=== PATIENT | female | born 1980 | race Caucasian/White ===

== ENCOUNTER 2016-11-14 19:33 | Emergency (ER) | payer MEDICAID, OTHER ==
[2016-11-15] MEDS ORDERED: Morphine INJ* 4 MG/ML 1 ML CARPUJECT IV ONE (00:25)
[2016-11-15] MEDS ORDERED: Ondansetron INJ* 2 MG/ML VIAL IV ONE (00:25)
[2016-11-15] MEDS ORDERED: NS 0.9% 1000 ML* 1,000 ML IV ONE (00:25)
[2016-11-15 00:31] LABS: Hematocrit 46 % (35-47); Hemoglobin 15.2 g/dl (12.0-16.0); Mean Corpuscular HGB Conc 33 g/dl (31-36); Mean Corpuscular Hemoglobin 30 pg (27-31); Mean Corpuscular Volume 91 fL (80-97); Mean Platelet Volume 8 um3 (7.4-10.4); Red Blood Count 5.01 10^6/ul (4.0-5.4); Red Cell Distribution Width 13 % (10.5-15); White Blood Count 7.5 10^3/ul (3.5-10.8)
[2016-11-15 00:42] LABS: ALT 13 U/L (7-52); AST 14 U/L (13-39); Albumin 4.5 g/dL (3.2-5.2); Alkaline Phosphatase 51 U/L (34-104); Anion Gap 4 mmol/L (2-11); BUN/Creatinine Ratio 16.7 (8-20); Blood Urea Nitrogen 13 mg/dL (6-24); C Reactive Protein < 1.00 mg/L (< 5.00); CO2 Carbon Dioxide 26 mmol/L (22-32); Calcium 9.6 mg/dL (8.6-10.3); Chloride 105 mmol/L (101-111); EGFR African American 109.4 (>60); EGFR Non-African American 85.1 (>60); Glucose 102 mg/dL (70-100); Lipase 46 U/L (11.0-82.0); Potassium 3.5 mmol/L (3.5-5.0); Sodium 135 mmol/L (133-145); Total Protein 7.5 g/dL (6.4-8.9)
[2016-11-15 00:44] LABS: Budding Yeast Present (Absent); Urine Bacteria Absent (Absent); Urine Bilirubin Negative (Negative); Urine Glucose Negative (Negative); Urine Nitrite Negative (Negative)
[2016-11-15] MEDS ORDERED: Levofloxacin TAB* 500 MG PO ONE (02:13)
[2016-11-15] MEDS ORDERED: Sulfamethox/Trimethoprim DS 800/160* TAB PO ONE (02:15)
[2016-11-15 02:24] VITALS: BP 114/84
--- NOTE | 2016-11-15 05:27 | ED ---
Guillermo Aguayo Rebecca, scribed for Mohan Peters on 11/15/16 at 0015 . GI/ HPI - HPI Summary HPI Summary: Pt is a 35 y/o F who presents to ED c/o vaginal bleeding. Sx began suddenly 3 weeks ago and have been constant since onset. Reports blood clots present, with a particularly large one today which prompted her to be evaluated by [facility] ED. Sx aggravated and alleviated by nothing. Additionally c/o fever and sharp suprapubic/groin pain. Pain is severe, ranked 8/10. PSHx tubal ligation (6 years ago). PCP referred pt to ED when discussing sx today. - History of Current Complaint Chief Complaint: EDVaginalBleeding Time Seen by Provider: 11/14/16 23:49 Stated Complaint: HEAVY VAG BLEEDING-SENT BY [facility] Hx Obtained From: Patient Onset/Duration: Started Weeks Ago - 3 weeks ago, Still Present Timing: Constant Severity: Moderate Current Severity: Severe Vaginal Bleeding Description: Clots Pain Intensity: 8 Location of Pain: Suprapubic, Groin Pain Characteristics: Sharp Associated Signs and Symptoms: Positive: Fever, Abdominal Pain - suprapubic/ groin Additional Signs & Symptoms: Positive: Vaginal Bleeding Aggravating Factor(s): Nothing Alleviating Factor(s): Nothing - Additional Pertinent History Referred By: PCP - Allergy/Home Medications Allergies/Adverse Reactions: Allergies Allergy/AdvReac Type Severity Reaction Status Date / Time Iodine Allergy Hives Verified 06/13/16 12:23 Iohexol [From Omnipaque] Allergy Hives Verified 06/13/16 12:23 Naproxen Allergy Hives Verified 06/13/16 12:23 PMH/Surg Hx/FS Hx/Imm Hx Endocrine/Hematology History: Denies: Hx Anticoagulant Therapy, Hx Blood Disorders, Hx Diabetes, Hx Thyroid Disease Cardiovascular History: Reports: Hx Hypertension - ON MEDS Denies: Hx Deep Vein Thrombosis Respiratory History: Reports: Hx Asthma - inhaler prn Denies: Hx Chronic Obstructive Pulmonary Disease (COPD), Hx Pulmonary Embolism GI History: Denies: Hx Ulcer, Other GI Disorders History: Reports: Other Problems/Disorders - ovarian cysts Musculoskeletal History: Denies: Hx Scoliosis Sensory History: Reports: Hx Contacts or Glasses Denies: Hx Hearing Aid Opthamlomology History: Reports: Hx Contacts or Glasses Neurological History: Denies: Hx Headaches, Other Neuro Impairments/Disorders Psychiatric History: Reports: Hx Depression, Hx Post Traumatic Stress Disorder - tx w/ propranolol, Hx Inpatient Treatment - at age 20 in [place], Hx Community Mental Health Tx - at age 20 in [place] Denies: Hx Eating Disorder, Hx of Violent Episodes Against Others - Surgical History Surgery Procedure, Year, and Place: 2006 - . 2011 Tubal Hx Anesthesia Reactions: No Infectious Disease History: Yes Infectious Disease History: Reports: Hx of Known/Suspected MRSA, Hx Shingles Denies: Hx Clostridium Difficile, Hx Hepatitis, Hx Human Immunodeficiency Virus (HIV), Hx Tuberculosis, History Other Infectious Disease, Traveled Outside the [place] in Last 30 Days - Family History Known Family History: Positive: Cardiac Disease, Diabetes, Other - cancer - mom w/ cervical, GF - pro, sister - cervical, aunt - cervical Family History: Bipolar - Social History Alcohol Use: None Hx Substance Use: No Substance Use Type: Reports: Cocaine, Marijuana, Other Substance Use Comment - Amount & Last Used: 3 WEEKS AGO SMOKED MARIJUANA Hx Tobacco Use: Yes Smoking Status (MU): Current Every Day Smoker Type: Cigarettes Amount Used/How Often: 2 cig./day Review of Systems Positive: Fever Positive: Abdominal Pain - suprapubic and groin Positive: other - Vaginal bleeding All Other Systems Reviewed And Are Negative: Yes Physical Exam Triage Information Reviewed: Yes Vital Signs On Initial Exam: Initial Vitals Temp Pulse Resp BP Pulse Ox 100.6 F 80 20 136/94 98 11/14/16 19:55 11/14/16 19:55 11/14/16 19:55 11/14/16 19:55 11/14/16 19:55 Vital Signs Reviewed: Yes Appearance: Positive: Well-Appearing, No Pain Distress Skin: Positive: Warm, Skin Color Reflects Adequate Perfusion, Dry Head/Face: Positive: Normal Head/Face Inspection Eyes: Positive: EOMI, SHIELA ENT: Positive: Normal ENT inspection Neck: Positive: Supple, Nontender Respiratory/Lung Sounds: Positive: Clear to Auscultation, Breath Sounds Present Cardiovascular: Positive: RRR, Pulses are Symmetrical in both Upper and Lower Extremities Abdomen Description: Positive: Soft. Negative: Nontender - Tenderness in the LLQ Bowel Sounds: Positive: Present Musculoskeletal: Positive: Normal, Strength/ROM Intact Neurological: Positive: Normal, Sensory/Motor Intact, Alert, Oriented to Person Place, Time Diagnostics - Vital Signs Vital Signs Temp Pulse Resp BP Pulse Ox 11/14/16 21:29 100 F 70 127/95 99 11/14/16 19:55 100.6 F 80 20 136/94 98 - Laboratory Result Diagrams: 11/15/16 00:10 11/15/16 00:10 Lab Statement: Any lab studies that have been ordered have been reviewed, and results considered in the medical decision making process. - CT CT Abd/Pel CT Interpretation Completed By: Radiologist - "Negative for right or left urinary tract stone or obstruction. No bowel obstruction, free air, or free fluid. Negative for diverticulitis or colitis. neative for appendicitis. No acute abnormalities of the liver, gallbladder, spleen, pancreas, or adrenal glands. Overall no acute intra-abdominal abnormalities are noted." - Ultrasound No standard instances Ultrasound Interpretation Completed By: Radiologist - Transvaginal US: "Retroverted uterus noted. Measures 8.5 cm x 4.7 cm x 7 cm. The endometrium is thickened up to 1.5 cm and is somewhat heterogeneous. Recommend followup to make sure returns to normal thickness. Please note that endometritis is difficult to evaluate on ultrasound unless one can see collections or gas bubbles. Needs clinical assessment. Normal ovaries bilaterally with positive Doppler blood fllow No free fluid. No fluid collections." GIGU Course/Dx - Course Assessment/Plan: Pt is a 35 y/o F who presents to ED with a CC of vaginal bleeding with clots for 3 weeks. C/o fever and sharp suprapubic/groin pain. Urinalysis reveals 3+ WBC, 3+ RBC, 2+ urine protein, 3+ urine blood and yeast present. Pt will be d/c to home with dx of DUB and UTI with a followup from her primary care physician within the next 3 days and prescriptions for Bactrim and Provera. - Diagnoses Provider Diagnoses: Dysfunctional uterine bleeding, UTI (urinary tract infection) Discharge - Discharge Plan Condition: Stable Disposition: HOME Prescriptions: Sulfamethox/Trimethoprim DS* [Bactrim DS 800/160 TAB*] 1 tab PO BID #10 tab medroxyPROGESTERone TAB* [Provera TAB*] 10 mg PO SEE INSTRUCTIONS #7 tab Patient Education Materials: Dysfunctional Uterine Bleeding (ED), Urinary Tract Infection in Women (ED) Referrals: Kosta,Daphne, AIRPORT PLANNER [Primary Care Provider] - 3 Days (Follow up with your primary care physician within the next 3 days. ) The documentation as recorded by the Guillermo woods Rebecca accurately reflects the service I personally performed and the decisions made by , Mohan Peters.
--- NOTE | 2016-11-15 07:53 | RAD ---
Indication: Pelvic pain and fever evaluate for abscess. COMPARISON: Comparison is made with a prior pelvic ultrasound from May 23, 2014. TECHNIQUE: Multiple real-time transvaginal images of the pelvis were obtained. FINDINGS: The uterus is retroverted and normal in size. The uterus measured 8.5 x 4.7 x 7.0 cm. The endometrium is thickened and heterogeneous measuring 1.5 cm in thickness. The right ovary measured 3.1 x 2.5 x 2.4 cm. The left ovary measured 3.3 x 2.2 x 2.9 cm. There is vascular flow within both ovaries. No free intraperitoneal fluid or localized fluid collections are seen. IMPRESSION: 1. NO FREE INTRAPERITONEAL FLUID OR LOCALIZED FLUID COLLECTIONS ARE SEEN. 2. THICKENED HETEROGENEOUS ENDOMETRIUM, RECOMMEND FOLLOW-UP STUDIES TO MAKE SURE RETURN TO NORMAL THICKNESS. 3. RETROVERTED UTERUS.
--- NOTE | 2016-11-15 08:14 | RAD ---
CLINICAL HISTORY: Flank pain, vaginal bleeding, renal colic COMPARISON: December 08, 2015 TECHNIQUE: Multiple contiguous axial CT scans were obtained of the abdomen and pelvis, without intravenous contrast enhancement. Coronal and sagittal multiplanar reformations are submitted for review. Oral contrast was not administered. FINDINGS: The study is limited by the lack of intravenous contrast. This limits evaluation of the solid organs and vasculature. LUNG BASES: The lung bases are clear. LIVER: The liver is normal in shape, size, contour, and attenuation. BILE DUCTS: There is no intrahepatic or extrahepatic biliary dilatation. GALLBLADDER: The gallbladder is normal, without pericholecystic inflammatory change. PANCREAS: The pancreas is normal, without mass or ductal dilatation. SPLEEN: Normal in size and appearance. UPPER GI TRACT: Evaluation of the gastrointestinal tract is limited by incomplete gastric distention. The upper GI tract is unremarkable. SMALL BOWEL AND MESENTERY: The small bowel is normal in contour, course, and caliber. There is no obstruction or dilatation. COLON: The colon is normal in contour, course, caliber. There is no pericolonic inflammatory change. There is large amount of stool within the colon ADRENALS: Normal bilaterally. KIDNEYS: The kidneys are normal in shape, size, contour, and axis. There is no hydronephrosis or nephrolithiasis. BLADDER: The bladder is smooth in contour. PELVIC ORGANS: The uterus is mildly enlarged. The pelvic organs otherwise normal for technique. AORTA: The aorta is normal. IVC: Unremarkable LYMPH NODES: There is no lymphadenopathy by size criteria. ABDOMINAL WALL: There is no evidence for abdominal wall hernia. BONES AND SOFT TISSUES: The bones and soft tissues are unremarkable. OTHER: None IMPRESSION: NO HYDRONEPHROSIS OR NEPHROLITHIASIS. MILDLY ENLARGED UTERUS WHICH MAY SUGGEST UTERINE FIBROIDS.
[2016-11-15 10:39] LABS: Syphilis Index < 0.1 Index
== END 2016-11-15 02:24 | disposition home or self-care (01) ==
LOC: ED 19:33
DX: N93.8 Other specified abnormal uterine and vaginal bleeding (principal); N39.0 Urinary tract infection, site not specified; R10.9 Unspecified abdominal pain; N93.9 Abnormal uterine and vaginal bleeding, unspecified; F17.209 Nicotine dependence, unspecified, with unspecified nicotine-induced disorders; R50.9 Fever, unspecified
CPT/HCPCS: 36415; 74176; 76830; 80053; 81003; 81015; 83605; 83690; 84702; 85025; 86140; 86592; 86703; 87040; 87077; 87086; 87150; 87205; 96361; 96374; 96375; 99284; A9270-GY; J2270; J2405

== ENCOUNTER 2016-12-03 23:32 | Emergency (ER) | payer MEDICAID, OTHER ==
[2016-12-04] MEDS ORDERED: HYDROcodone/ACETAMIN 5-325 MG* 1 TAB PO ONE (00:31)
[2016-12-04 00:53] LABS: Hematocrit 41 % (35-47); Hemoglobin 13.4 g/dl (12.0-16.0); Mean Corpuscular HGB Conc 33 g/dl (31-36); Mean Corpuscular Hemoglobin 30 pg (27-31); Mean Corpuscular Volume 92 fL (80-97); Mean Platelet Volume 8 um3 (7.4-10.4); Red Blood Count 4.44 10^6/ul (4.0-5.4); Red Cell Distribution Width 13 % (10.5-15)
[2016-12-04 01:09] LABS: Albumin 3.9 g/dL (3.2-5.2); Calcium 9.1 mg/dL (8.6-10.3); EGFR African American 104.1 (>60); EGFR Non-African American 80.9 (>60); Globulin 2.8 g/dL (2-4); Potassium 3.8 mmol/L (3.5-5.0); Total Bilirubin 0.3 mg/dL (0.2-1.0); Total Protein 6.7 g/dL (6.4-8.9)
[2016-12-04] MEDS ORDERED: traMADol TAB* 50 MG PO ONE (02:13)
[2016-12-04 02:33] VITALS: BP 122/88
--- NOTE | 2016-12-04 06:31 | ED ---
Avtar Aguayo Matthew, scribed for Yaron Sloan MD on 12/04/16 at 0011 . GI/ HPI - HPI Summary HPI Summary: A 36 y/o female presents to the ED with lower abdominal pain and vaginal bleeding since 3 days ago. The pain is rated 10/10 in severity. The patient states that she's had to change her pad every hour, because of menstrual bleeding. The patient states that she has used 13 pads today. She was seen in the ED a week and half ago, and her symptoms are not improving. She went to [facility] and was prescribed control to help regulate her menstrual cycle; however, she continues to have bleeding. Associated symptoms includes generalized weakness, lightheadedness, and dizziness. She denies ever needing a blood transfusion. - History of Current Complaint Chief Complaint: EDAbdPain Time Seen by Provider: 12/03/16 23:37 Stated Complaint: VAGINAL BLEEDING Hx Obtained From: Patient Onset/Duration: Started Days Ago, Atraumatic, Still Present Timing: Constant Severity: Moderate Current Severity: Moderate Pain Intensity: 10 Location of Pain: Diffuse - lower abdominal Associated Signs and Symptoms: Positive: Dizziness, Weakness - generalized, Lightheadedness - Allergy/Home Medications Allergies/Adverse Reactions: Allergies Allergy/AdvReac Type Severity Reaction Status Date / Time Iodine Allergy Hives Verified 06/13/16 12:23 Iohexol [From Omnipaque] Allergy Hives Verified 06/13/16 12:23 Naproxen Allergy Hives Verified 06/13/16 12:23 PMH/Surg Hx/FS Hx/Imm Hx Endocrine/Hematology History: Denies: Hx Anticoagulant Therapy, Hx Blood Disorders, Hx Diabetes, Hx Thyroid Disease Cardiovascular History: Reports: Hx Hypertension - ON MEDS Denies: Hx Deep Vein Thrombosis Respiratory History: Reports: Hx Asthma - inhaler prn Denies: Hx Chronic Obstructive Pulmonary Disease (COPD), Hx Pulmonary Embolism GI History: Denies: Hx Ulcer, Other GI Disorders History: Reports: Other Problems/Disorders - ovarian cysts Musculoskeletal History: Denies: Hx Scoliosis Sensory History: Reports: Hx Contacts or Glasses Denies: Hx Hearing Aid Opthamlomology History: Reports: Hx Contacts or Glasses Neurological History: Denies: Hx Headaches, Other Neuro Impairments/Disorders Psychiatric History: Reports: Hx Depression, Hx Post Traumatic Stress Disorder - tx w/ propranolol, Hx Inpatient Treatment - at age 20 in [place], Hx Community Mental Health Tx - at age 20 in [place] Denies: Hx Eating Disorder, Hx of Violent Episodes Against Others - Surgical History Surgery Procedure, Year, and Place: 2006 - . 2011 Tubal Hx Anesthesia Reactions: No Infectious Disease History: No Infectious Disease History: Reports: Hx of Known/Suspected MRSA, Hx Shingles Denies: Hx Clostridium Difficile, Hx Hepatitis, Hx Human Immunodeficiency Virus (HIV), Hx Tuberculosis, History Other Infectious Disease, Traveled Outside the [place] in Last 30 Days - Family History Known Family History: Positive: Unknown, Cardiac Disease, Diabetes, Other - cancer - mom w/ cervical, GF - pro, sister - cervical, aunt - cervical Family History: Bipolar - Social History Alcohol Use: None Hx Substance Use: No Substance Use Type: Reports: Cocaine, Marijuana, Other Substance Use Comment - Amount & Last Used: 3 WEEKS AGO SMOKED MARIJUANA Hx Tobacco Use: Yes Smoking Status (MU): Current Every Day Smoker Type: Cigarettes Amount Used/How Often: 2 cig./day Review of Systems Constitutional: Negative Negative: Fever, Chills Eyes: Negative Negative: Erythema ENT: Negative Negative: Sore Throat Cardiovascular: Negative Negative: Chest Pain Respiratory: Negative Negative: Shortness Of Breath, Cough Positive: Abdominal Pain Genitourinary: Other - Vaginal Bleeding Musculoskeletal: Negative Negative: Myalgia, Edema - pedal Skin: Negative Negative: Rash Neurological: Other - lightheadedness, dizziness Positive: Weakness - generalized Psychological: Normal All Other Systems Reviewed And Are Negative: Yes Physical Exam - Summary Physical Exam Summary: Pelvic exam showed a small amount of blood in the vaginal vault with no active bleeding. The exam was preformed with Cierra present. (spot sprayer) Triage Information Reviewed: Yes Vital Signs On Initial Exam: Initial Vitals Temp Pulse Resp BP Pulse Ox 97.9 F 69 18 128/90 100 12/03/16 23:40 12/03/16 23:40 12/03/16 23:40 12/03/16 23:40 12/03/16 23:40 Vital Signs Reviewed: Yes Appearance: Positive: Well-Appearing, No Pain Distress Skin: Positive: Warm, Dry Head/Face: Positive: Normal Head/Face Inspection Eyes: Positive: Conjunctiva Clear Dental: Negative: Cervical Lymphadenopathy Neck: Positive: Supple, No Lymphadenopathy, Other: - Full ROM; No JVD Respiratory/Lung Sounds: Positive: Breath Sounds Present, Other - Normal Effort. Negative: Rales, Rhonchi, Stridor, Tracheal Deviation, Wheezes Cardiovascular: Positive: RRR, Other - Heart sounds normal; Intact distal pulses; The pedal pulses are 2+ and symmetric. Radial pulses are 2+ and symmetric.. Negative: Murmur Abdomen Description: Positive: Nontender, Soft, Other: - No Rebound. Negative: Distended, Guarding Musculoskeletal: Negative: Edema Left, Edema Right Neurological: Positive: Alert, Oriented to Person Place, Time Psychiatric: Positive: Affect/Mood Appropriate Diagnostics - Vital Signs Vital Signs Temp Pulse Resp BP Pulse Ox 12/03/16 23:40 97.9 F 69 18 128/90 100 - Laboratory Result Diagrams: 12/04/16 00:40 12/04/16 00:40 Lab Statement: Any lab studies that have been ordered have been reviewed, and results considered in the medical decision making process. GIGU Course/Dx - Course Assessment/Plan: Patient appears stable according to H&H, pelvic exam, and vital signs. - Diagnoses Provider Diagnoses: Dysfunctional uterine bleeding - Physician Notifications Discussed Care Of Patient With: Dr. Singleton ([facility]) at 01:49 -- Notified of patient's history. Dr. Singleton states that since the patient is a smoker and already on the highest dose of provera, she will need to follow-up with [facility] to discuss surgical options. Discharge - Discharge Plan Condition: Stable Disposition: HOME Prescriptions: traMADol TAB* [Ultram*] 25 mg PO Q6HR PRN #10 tab MDD 4 PRN Reason: Pain - Moderate To Severe Patient Education Materials: Dysfunctional Uterine Bleeding (ED), Tramadol (By mouth) Referrals: Jocelyn Singleton MD [Medical Doctor] - 2 Days Additional Instructions: Please follow-up with [facility] within 48 hours. Return to the emergency department for changing or worsening symptoms The documentation as recorded by the Avtar woods Matthew accurately reflects the service I personally performed and the decisions made by me, Yaron Sloan MD.
== END 2016-12-04 02:30 | disposition home or self-care (01) ==
LOC: ED 23:32
DX: R10.30 Lower abdominal pain, unspecified (principal); R42 Dizziness and giddiness; R53.1 Weakness; F17.210 Nicotine dependence, cigarettes, uncomplicated
CPT/HCPCS: 36415; 80053; 85027; 85610; 85730; 87480; 87491; 87510; 87591; 87660; 99284; A9270-GY

== ENCOUNTER 2016-12-30 00:18 | Emergency (ER) | payer SELFPAY ==
[2016-12-30 00:25] VITALS: BP 122/72
[2016-12-30] MEDS ORDERED: oxyCODONE/Acetamin 5/325 MG* TAB PO ONE (00:47)
--- NOTE | 2016-12-30 01:41 | ED ---
Avtar Aguayo Matthew, scribed for Mohan Peters on 12/30/16 at 0125 . Back Pain - HPI Summary HPI Summary: A 36 y/o female presents to the ED with constant lower right back pain since 2 days ago. The patient states that she fell on her back 2 days ago. She has been ambulating the past 2 days. Tonight, she attempted to situp from the cough and re-aggravated her back. - History of Current Complaint Chief Complaint: EDBackInjuryPain Stated Complaint: RT SIDE FLANK PAIN Time Seen by Provider: 12/30/16 00:41 Hx Obtained From: Patient Hx Last Menstrual Period: 02/14/16 Onset/Duration: Sudden Onset, Lasting Days, Still Present Onset/Duration: Started Days Ago, Traumatic, Still Present Timing: Constant Back Pain Location: Is Discrete @ - right lower back Severity Initially: Moderate Severity Currently: Moderate Pain Intensity: 10 Pain Scale Used: 0-10 Numeric Aggravating Symptom(s): Movement Alleviating Symptom(s): Nothing - Allergies/Home Medications Allergies/Adverse Reactions: Allergies Allergy/AdvReac Type Severity Reaction Status Date / Time Iodine Allergy Hives Verified 06/13/16 12:23 Iohexol [From Omnipaque] Allergy Hives Verified 06/13/16 12:23 Naproxen Allergy Hives Verified 06/13/16 12:23 PMH/Surg Hx/FS Hx/Imm Hx Endocrine/Hematology History: Denies: Hx Anticoagulant Therapy, Hx Blood Disorders, Hx Diabetes, Hx Thyroid Disease Cardiovascular History: Reports: Hx Hypertension - ON MEDS Denies: Hx Deep Vein Thrombosis Respiratory History: Reports: Hx Asthma - inhaler prn Denies: Hx Chronic Obstructive Pulmonary Disease (COPD), Hx Pulmonary Embolism GI History: Denies: Hx Ulcer, Other GI Disorders History: Reports: Other Problems/Disorders - ovarian cysts Musculoskeletal History: Denies: Hx Scoliosis Sensory History: Reports: Hx Contacts or Glasses Denies: Hx Hearing Aid Opthamlomology History: Reports: Hx Contacts or Glasses Neurological History: Denies: Hx Headaches, Other Neuro Impairments/Disorders Psychiatric History: Reports: Hx Depression, Hx Post Traumatic Stress Disorder - tx w/ propranolol, Hx Inpatient Treatment - at age 20 in [place], Hx Community Mental Health Tx - at age 20 in [place] Denies: Hx Eating Disorder, Hx of Violent Episodes Against Others - Surgical History Surgery Procedure, Year, and Place: 2007 - . 2011 Tubal Hx Anesthesia Reactions: No Infectious Disease History: No Infectious Disease History: Reports: Hx of Known/Suspected MRSA, Hx Shingles Denies: Hx Clostridium Difficile, Hx Hepatitis, Hx Human Immunodeficiency Virus (HIV), Hx Tuberculosis, History Other Infectious Disease, Traveled Outside the [place] in Last 30 Days - Family History Known Family History: Positive: Unknown, Cardiac Disease, Diabetes, Other - cancer - mom w/ cervical, GF - pro, sister - cervical, aunt - cervical Family History: Bipolar - Social History Alcohol Use: None Hx Substance Use: No Substance Use Type: Reports: None Substance Use Comment - Amount & Last Used: 3 WEEKS AGO SMOKED MARIJUANA Hx Tobacco Use: Yes Smoking Status (MU): Current Every Day Smoker Type: Cigarettes Amount Used/How Often: 2 cig./day Review of Systems Constitutional: Negative Eyes: Negative ENT: Negative Cardiovascular: Negative Respiratory: Negative Gastrointestinal: Negative Genitourinary: Negative Positive: Myalgia - RT lower back pain Skin: Negative Neurological: Negative Psychological: Normal All Other Systems Reviewed And Are Negative: Yes Physical Exam Triage Information Reviewed: Yes Vital Signs On Initial Exam: Initial Vitals Temp Pulse Resp BP Pulse Ox 99 F 75 20 122/72 100 12/30/16 00:21 12/30/16 00:21 12/30/16 00:21 12/30/16 00:21 12/30/16 00:21 Vital Signs Reviewed: Yes Appearance: Positive: Well-Appearing Skin: Positive: Warm, Skin Color Reflects Adequate Perfusion, Dry Head/Face: Positive: Normal Head/Face Inspection Eyes: Positive: EOMI, SHIELA ENT: Positive: Normal ENT inspection Neck: Positive: Supple, Nontender Respiratory/Lung Sounds: Positive: Clear to Auscultation, Breath Sounds Present Cardiovascular: Positive: RRR, Pulses are Symmetrical in both Upper and Lower Extremities Abdomen Description: Positive: Nontender, Soft Bowel Sounds: Positive: Present Musculoskeletal: Positive: Other - tenderness over the sacroiliac joint Neurological: Positive: Normal, Sensory/Motor Intact, Alert, Oriented to Person Place, Time Psychiatric: Positive: Affect/Mood Appropriate Diagnostics - Vital Signs Vital Signs Temp Pulse Resp BP Pulse Ox 12/30/16 00:21 99 F 75 20 122/72 100 - Laboratory Lab Statement: Any lab studies that have been ordered have been reviewed, and results considered in the medical decision making process. - Radiology L-Spine XR Xray Interpretation: No Acute Changes Radiology Interpretation Completed By: ED Physician Back Pain Course/Dx - Course Assessment/Plan: A 36 y/o female presents to the ED with constant lower right back pain since 2 days ago. The patient states that she fell on her back 2 days ago. She has been ambulating the past 2 days. Tonight, she attempted to sit-up from the cough and re-aggravated her back. Lumbar Spine XR is negative. The patient will be discharged home on Percocet to follow-up with her PCP. - Diagnoses Provider Diagnoses: Back pain Discharge - Discharge Plan Condition: Stable Disposition: HOME Prescriptions: oxyCODONE/Acetamin 5/325 MG* [Percocet 5/325 TAB*] 1 tab PO Q8H PRN #10 tab MDD 3 PRN Reason: Pain Patient Education Materials: Back Pain (ED), Oxycodone/Acetaminophen (By mouth) Referrals: Daphne Brambila, PACKAGE DESIGNER [Primary Care Provider] - Additional Instructions: Please follow-up with your primary care physician in 3 days. The documentation as recorded by the Avtar woods Matthew accurately reflects the service I personally performed and the decisions made by , Mohan Peters.
--- NOTE | 2016-12-30 09:22 | RAD ---
Indication: Predominant RIGHT lumbar pain post fall 2 days ago. Comparison: November 15, 2016 CT. Technique: AP, lateral, and oblique views lumbar sacral spine. Report: Alignment is anatomic. No cortical disruption or trabecular impaction to indicate a vertebral body fracture. Oblique views without evidence for spondylolysis. Preserved disc spaces.. Unremarkable soft tissue contours. IMPRESSION: No traumatic injury evident. Negative exam.
== END 2016-12-30 01:46 | disposition home or self-care (01) ==
LOC: ED 00:18
DX: M54.5 Low back pain (principal); I10 Essential (primary) hypertension; J45.909 Unspecified asthma, uncomplicated; F17.210 Nicotine dependence, cigarettes, uncomplicated; W19.XXXA Unspecified fall, initial encounter; Y92.9 Unspecified place or not applicable
CPT/HCPCS: 72110; 99282; A9270-GY

== ENCOUNTER → 2017-04-25 19:45 | Emergency (ER) | payer MEDICAID ==
[~2017-04-25 19:45] MED LIST: Amoxicillin CAP* 250 MG PO ONE
--- NOTE | 2017-04-25 22:25 | ED ---
Throat Pain/Nasal Congestion - HPI Summary HPI Summary: 36F presents with sore throat for 3 days. She admits that her tongue and throat feel like they are a burning sensation. She denies any SOB or chest pain. She has history of strept. She denies any one else being sick. She states it is painful to swallow. She denies any fever. She has not taken anything for her pain. - History of Current Complaint Chief Complaint: EDThroatPain Time Seen by Provider: 04/25/17 21:24 - Allergies/Home Medications Allergies/Adverse Reactions: Allergies Allergy/AdvReac Type Severity Reaction Status Date / Time Iodine Allergy Hives Verified 06/13/16 12:23 Iohexol [From Omnipaque] Allergy Hives Verified 06/13/16 12:23 Naproxen Allergy Hives Verified 06/13/16 12:23 PMH/Surg Hx/FS Hx/Imm Hx Endocrine/Hematology History: Denies: Hx Anticoagulant Therapy, Hx Blood Disorders, Hx Diabetes, Hx Thyroid Disease Cardiovascular History: Reports: Hx Hypertension - ON MEDS Denies: Hx Deep Vein Thrombosis Respiratory History: Reports: Hx Asthma - inhaler prn Denies: Hx Chronic Obstructive Pulmonary Disease (COPD), Hx Pulmonary Embolism GI History: Denies: Hx Ulcer, Other GI Disorders History: Reports: Other Problems/Disorders - ovarian cysts Musculoskeletal History: Denies: Hx Scoliosis Sensory History: Reports: Hx Contacts or Glasses Denies: Hx Hearing Aid Opthamlomology History: Reports: Hx Contacts or Glasses Neurological History: Denies: Hx Headaches, Other Neuro Impairments/Disorders Psychiatric History: Reports: Hx Depression, Hx Post Traumatic Stress Disorder - tx w/ propranolol, Hx Inpatient Treatment - at age 20 in [place], Hx [facility] Tx - at age 20 in [place] Denies: Hx Eating Disorder, Hx of Violent Episodes Against Others - Surgical History Surgery Procedure, Year, and Place: 2006 - . 2011 Tubal Hx Anesthesia Reactions: No Infectious Disease History: No Infectious Disease History: Reports: Hx of Known/Suspected MRSA, Hx Shingles Denies: Hx Clostridium Difficile, Hx Hepatitis, Hx Human Immunodeficiency Virus (HIV), Hx Tuberculosis, History Other Infectious Disease, Traveled Outside the [place] in Last 30 Days - Family History Known Family History: Positive: Unknown, Cardiac Disease, Diabetes, Other - cancer - mom w/ cervical, GF - pro, sister - cervical, aunt - cervical Family History: Bipolar - Social History Alcohol Use: Rare Hx Substance Use: No Substance Use Type: Reports: None Substance Use Comment - Amount & Last Used: 3 WEEKS AGO SMOKED MARIJUANA Hx Tobacco Use: Yes Smoking Status (MU): Current Some Day Smoker Type: Cigarettes Amount Used/How Often: 2 cig./day Review of Systems Negative: Fever Positive: Sore Throat Negative: Chest Pain Negative: Shortness Of Breath All Other Systems Reviewed And Are Negative: Yes Physical Exam Triage Information Reviewed: Yes Vital Signs On Initial Exam: Initial Vitals Temp Pulse Resp BP Pulse Ox 98.9 F 97 16 108/69 96 04/25/17 20:40 04/25/17 20:40 04/25/17 20:40 04/25/17 20:40 04/25/17 20:40 Vital Signs Reviewed: Yes Appearance: Positive: Well-Appearing Skin: Positive: Warm, Dry Head/Face: Positive: Normal Head/Face Inspection Eyes: Positive: Normal, EOMI, HSIELA, Conjunctiva Clear ENT: Positive: Normal ENT inspection, Pharyngeal erythema, TMs normal, Tonsillar swelling. Negative: Tonsillar exudate, Trismus Neck: Positive: Supple, Nontender, No Lymphadenopathy Respiratory/Lung Sounds: Positive: Clear to Auscultation, Breath Sounds Present Cardiovascular: Positive: Normal, RRR Diagnostics - Vital Signs Vital Signs Temp Pulse Resp BP Pulse Ox 04/25/17 21:41 98.1 F 69 16 109/68 97 04/25/17 20:40 98.9 F 97 16 108/69 96 - Laboratory Lab Results: Lab Results 04/25/17 Range/Units 20:52 Group A Strep Rapid Positive H (Negative) Lab Statement: Any lab studies that have been ordered have been reviewed, and results considered in the medical decision making process. EENT Course/Dx - Course Course Of Treatment: 36F presents with sore throat for 3 days. She admits that her tongue and throat feel like they are a burning sensation. She denies any SOB or chest pain. She has history of strept. She denies any one else being sick. She states it is painful to swallow. She denies any fever. on exam uvula midline, soft palate symmetric. no lymphadenopathy. strept pos. will treat with amoxicillin. patient understands and agrees with plan - Diagnoses Provider Diagnoses: Streptococcal sore throat Discharge - Discharge Plan Condition: Good Disposition: HOME Prescriptions: Amoxicillin CAP* [Amoxicillin 500 MG CAP*] 500 mg PO BID #19 cap Magic Mouth Was-LEANA/MAAL/LIDO* 5 ml SWISH SWAL QID #100 ml Patient Education Materials: Strep Throat (ED) Referrals: Daphne Brambila NP [Primary Care Provider] - Additional Instructions: Take antibiotic twice a day for 10 days, first dose given in ED Magic mouth wash 4x a day Take Tylenol or ibuprofen for pain/fever every 6 hours Can gargle salt water, use cough drops or products such as cloraseptic spray for pain Return to ED if develop difficulty breathing or unable to manage secretions, any new or worsening symptoms
[2017-04-25 23:02] VITALS: BP 120/67
== END | disposition home or self-care (01) ==
LOC: ED 19:45
DX: J02.0 Streptococcal pharyngitis (principal); J02.9 Acute pharyngitis, unspecified; Z72.0 Tobacco use
CPT/HCPCS: 87651; 99282; A9270-GY

== ENCOUNTER 2018-03-08 20:06 | Emergency (ER) | payer SELFPAY ==
[2018-03-08 21:05] LABS: ABS Basophils 0 10^3/ul (0-0.2); ABS Eosinophils 0 10^3/ul (0-0.6); ABS Lymphocytes 1.8 10^3/ul (1.0-4.8); ABS Monocytes 0.6 10^3/ul (0-0.8); ABS Neutrophils 5.6 10^3/ul (1.5-7.7); ABS Nucleated RBC 0 10^3/ul; Eosinophil % 0.4 % (0-6); Hematocrit 47 % (35-47); Hemoglobin 15.9 g/dl (12.0-16.0); Lymphocyte % 22.1 % (25-47); Mean Corpuscular HGB Conc 34 g/dl (31-36); Mean Corpuscular Hemoglobin 31 pg (27-31); Mean Corpuscular Volume 91 fL (80-97); Mean Platelet Volume 7.6 um3 (7.4-10.4); Nucleated Red Blood Cells % 0.1; Platelet Count 281 10^3/ul (150-450); Red Blood Count 5.16 10^6/ul (4.0-5.4); Red Cell Distribution Width 14 % (10.5-15); White Blood Count 8.1 10^3/ul (3.5-10.8)
[2018-03-08 21:14] LABS: INR 0.91 (0.77-1.02)
[2018-03-08 21:26] LABS: EGFR Non-African American 80.5 (>60)
[2018-03-08] MEDS ORDERED: Hydrocortisone SUPP* 25 MG SUPP (2.5%) PR ONE (23:16)
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
[2018-03-08 23:52] VITALS: BP 121/83
[2018-03-09] MEDS ORDERED: Dibucaine 1% 28.35 GM TUBE PR ONE (09:00)
--- NOTE | 2018-03-12 09:57 | PN ---
Progress Note - Progress Note Date of Service: 03/08/18 Note: Positive Gardnerella Patient was placed on Flagyl 500 mg twice a day 7 days Called patient to make aware States will coal picker prescription today Nothing further at this time
== END 2018-03-08 23:51 | disposition home or self-care (01) ==
LOC: ED 20:06
DX: N93.9 Abnormal uterine and vaginal bleeding, unspecified (principal); K64.9 Unspecified hemorrhoids; F43.10 Post-traumatic stress disorder, unspecified; F17.210 Nicotine dependence, cigarettes, uncomplicated; I10 Essential (primary) hypertension; J45.909 Unspecified asthma, uncomplicated
CPT/HCPCS: 36415; 80053; 84702; 85025; 85610; 85730; 86592; 86703; 87480; 87491; 87510; 87591; 87661; 99282; A9270-GY

== ENCOUNTER 2018-06-25 17:31 | Emergency (ER) | payer SELFPAY ==
--- NOTE | 2018-06-26 06:53 | UC ---
Discharge - Sign-Out/Discharge Documenting (check all that apply): Post-Discharge Follow Up All imaging exams completed and their final reports reviewed: No Studies - Discharge Plan Disposition: LEFT WITHOUT BEING SEEN Referrals: Daphne Brambila NP [Primary Care Provider] - - Billing Disposition and Condition Disposition: Left Without Being Seen
== END 2018-06-25 18:30 | disposition left against medical advice (07) ==
LOC: UCEAST 17:31
DX: S69.90XA Unspecified injury of unspecified wrist, hand and finger(s), initial encounter (principal); X58.XXXA Exposure to other specified factors, initial encounter; Y93.9 Activity, unspecified; Y92.9 Unspecified place or not applicable; Z53.21 Procedure and treatment not carried out due to patient leaving prior to being seen by health care provider

== ENCOUNTER 2018-06-25 17:46 | Emergency (ER) | payer OTHER ==
[2018-06-25 19:38] VITALS: BP 114/71
--- NOTE | 2018-06-25 19:59 | UC ---
Hand/Wrist HPI - HPI Summary HPI Summary: This is Edgar woods, documenting for attending Corrina Morris MD. Patient is a 37 y/o F c/o L hand pain localized in her index finger onset ~2 days ago while at work. Patient states she tried to touch posterior that was falling on the counter and jammed her finger. Patient is right-hand dominant. Patient has not taken anything for pain. Pain is described as throbbing and rated a 7/10 but rated a 10/10 when her finger hits something. She has a tough time bending her finger secondary to swelling. Denies: fever, chills. Patient states that she was working at [employer] when the microwave fell off the counter. She attempted to catch the microwave but hurt her finger in the process. She reports successfully using ice to alleviate the swelling. Patients medication reviewed this visit. - History Of Current Complaint Chief Complaint: UCUpperExtremity Stated Complaint: FINGER INJURY Time Seen by Provider: 06/25/18 19:29 Hx Obtained From: Patient Hx Last Menstrual Period: 06/22/18 ?: No Onset/Duration: Sudden Onset, Lasting Days Severity Currently: Moderate Pain Intensity: 7 Pain Scale Used: 0-10 Numeric Character Of Pain: Throbbing Aggravating Factor(s): Other - Contact Alleviating Factor(s): Ice Associated Signs And Symptoms: Positive: Swelling, Other - pain - Allergies/Home Medications Allergies/Adverse Reactions: Allergies Allergy/AdvReac Type Severity Reaction Status Date / Time iodine Allergy Hives Verified 06/25/18 19:30 iohexol Allergy Hives Verified 06/25/18 19:30 naproxen Allergy Hives Verified 06/25/18 19:30 Home Medications: Home Medications NK [No Home Medications Reported] 06/25/18 [History Confirmed 06/25/18] PMH/Surg Hx/FS Hx/Imm Hx Previously Healthy: Yes Other History Of: Negative For: Anticoagulant Therapy - Surgical History Surgical History: Yes Surgery Procedure, Year, and Place: 2006 - . 2010 - Tubal - Family History Known Family History: Positive: Cardiac Disease, Diabetes, Other - cancer - mom w/ cervical, GF - pro, sister - cervical, aunt - cervical Family History: Bipolar - Social History Occupation: Employed Full-time Lives: With Family Alcohol Use: None Substance Use Type: Marijuana Smoking Status (MU): Current Every Day Smoker Type: Cigars Household Exposure Type: Cigars - Immunization History Most Recent Influenza Vaccination: never Most Recent Tetanus Shot: 11/06 Review of Systems Constitutional: Other - NEG: fever, chills Musculoskeletal: Other: - POS: L index finger swelling, pain All Other Systems Reviewed And Are Negative: Yes Physical Exam - Summary Physical Exam Summary: Vital Signs Reviewed: Yes A+Ox3, no distress Eyes: Conjunctiva Clear ENT: Hearing grossly normal neck: supple Respiratory: Positive: No respiratory distress, No accessory muscle use Cardiovascular: skin color reflect adequate perfusion CBT < 2 sec digitis Musculoskeletal Exam: + flex/ext wrist no pain MCP + TTP middle and distal phalanx on left 2nd digit. + mild edema distal phalynx + flex.ext DIP with discomfort full flexions Neurological: Positive: Alert, ambulatory without difficulty Psychological: Positive: Normal Response To Family Skin: Positive: no rash, no ecchymosis edema no abraison Triage Information Reviewed: Yes Vital Signs: Initial Vital Signs Temp 98.2 F 06/25/18 19:31 Pulse 70 06/25/18 19:31 Resp 20 06/25/18 19:31 BP 114/71 06/25/18 19:31 Pulse Ox 98 06/25/18 19:31 Diagnostics - Radiology Finger XR Xray Interpretation: Positive (See Comments) - Oblique nondisplaced distal phalynx fracture 2nd index, left Radiology Interpretation Completed By: ED Physician - ED physician reviewed this radiology report. Hand/Wrist Course/Dx - Course Course Of Treatment: Workman's comp. forms completed. Patient with pain and discomfort to the left distal phalanx of her index finger. Patient right-hand dominant. Patient states it occurred approximately 3 days ago a toaster fell at work and she tried to grab. On plain film patient's been nondisplaced distal phalanx fracture. Patient placed in splint. Motrin Tylenol. Ice elevate. Referral to orthopedics. Patient also given a note for work stating she should go the wear splint. Patient comfortable in agreement with plan. Return precautions discussed. - Differential Dx/Diagnosis Provider Diagnoses: phalyx fx, non displaced Discharge - Sign-Out/Discharge Documenting (check all that apply): Patient Departure All imaging exams completed and their final reports reviewed: No - Discharge Plan Condition: Stable Disposition: HOME Patient Education Materials: Finger Fracture (ED) Forms: *Work Release Referrals: Francois Rodgers MD [Medical Doctor] - Daphne Brambila NP [Primary Care Provider] - Additional Instructions: - Okay to take Tylenol every 6 hours for pain. Take with food. - wear splint for comfort and support. Wear splint as much as possible for the next 4-5 days - apply ice (Wrapped in a towel) 20 minutes at a time, 2-3 times a day - Contact the orthopedic provider to schedule a follow-up appointment this week - Billing Disposition and Condition Condition: STABLE Disposition: Home - Attestation Statements Document Initiated by Ashwini: Yes Documenting Scribe: Edgar Butcher Provider For Whom Ashwini is Documenting (Include Credential): Corrina Morris MD Scribe Attestation: Edgar Aguayo, scribed for Corrina Morris MD on 06/26/18 at 0741. Scribe Documentation Reviewed: Yes Provider Attestation: The documentation as recorded by the Edgar woods accurately reflects the service I personally performed and the decisions made by me, Corrina Morris MD
--- NOTE | 2018-06-25 22:55 | RAD ---
INDICATION: Pain and swelling at the interphalangeal joints of the left index finger 3 days after an injury COMPARISON: None. TECHNIQUE: 3 views of the left index finger were obtained. FINDINGS: There is an obliquely oriented nondisplaced fracture through the distal diaphysis of the left index finger distal phalanx. Remaining visualized bones are intact and appropriately aligned. IMPRESSION: NONDISPLACED FRACTURE INVOLVING THE DISTAL PHALANX OF THE LEFT INDEX FINGER. R0
--- NOTE | 2018-06-26 09:11 | UC ---
Discharge - Sign-Out/Discharge Documenting (check all that apply): Post-Discharge Follow Up All imaging exams completed and their final reports reviewed: Yes - Discharge Plan Condition: Stable Disposition: HOME Patient Education Materials: Finger Fracture (ED) Forms: *Work Release Referrals: Francois Rodgers MD [Medical Doctor] - Daphne Brambila NP [Primary Care Provider] - Additional Instructions: - Okay to take Tylenol every 6 hours for pain. Take with food. - wear splint for comfort and support. Wear splint as much as possible for the next 4-5 days - apply ice (Wrapped in a towel) 20 minutes at a time, 2-3 times a day - Contact the orthopedic provider to schedule a follow-up appointment this week - Billing Disposition and Condition Condition: STABLE Disposition: Home
== END 2018-06-25 20:50 | disposition home or self-care (01) ==
LOC: UCEAST 17:46
DX: S62.661A Nondisplaced fracture of distal phalanx of left index finger, initial encounter for closed fracture (principal); W23.0XXA Caught, crushed, jammed, or pinched between moving objects, initial encounter; Y93.9 Activity, unspecified; Y92.9 Unspecified place or not applicable; Y99.0 Civilian activity done for income or pay; Z88.6 Allergy status to analgesic agent; Z88.3 Allergy status to other anti-infective agents; Z91.041 Radiographic dye allergy status; F17.290 Nicotine dependence, other tobacco product, uncomplicated
CPT/HCPCS: 73140; 99212; G0463

== ENCOUNTER 2018-08-12 12:18 | Emergency (ER) | payer SELFPAY ==
--- NOTE | 2018-08-12 12:31 | UC ---
Lower Extremity/Ankle HPI - HPI Summary HPI Summary: 37 yo female presents with two complaints: 1) She tells me that a few months ago she broke the tip of her left index finger. She apparently had an XR and saw Ortho and was advised to luis alberto tape the area for weeks, but pt admits that she quit doing this about a week earlier than advised. Since that time has continued to her left finger pain and thinks he may have never healed. 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 2) She tells me that 2-3 months ago she stepped on something at home while barefoot. Had mild pain at the time and since, but over the last week has been severe pain. Unsure what she stepped on, but thinks it may have been glass. She has tried to soak this in epson salt, but has had no relief. Says her tetanus is UTD Denies fever, chills. - History of Current Complaint Stated Complaint: FOOT COMPLAINT Time Seen by Provider: 08/12/18 12:30 Hx Obtained From: Patient Hx Last Menstrual Period: 02/14/16 Severity Initially: Moderate Severity Currently: Severe Pain Intensity: 8 Pain Scale Used: 0-10 Numeric Aggravating Factor(s): Standing, Ambulation Alleviating Factor(s): Rest, Elevation Able to Bear Weight: Yes - Allergies/Home Medications Allergies/Adverse Reactions: Allergies Allergy/AdvReac Type Severity Reaction Status Date / Time iodine Allergy Hives Verified 08/12/18 12:47 iohexol Allergy Hives Verified 08/12/18 12:47 naproxen Allergy Hives Verified 08/12/18 12:47 PMH/Surg Hx/FS Hx/Imm Hx - Additional Past Medical History Additional PMH: None Other History Of: Negative For: Anticoagulant Therapy - Surgical History Surgical History: Yes Surgery Procedure, Year, and Place: 2006 - . 2010 Tubal - Family History Known Family History: Positive: Cardiac Disease, Diabetes, Other - cancer - mom w/ cervical, GF - pro, sister - cervical, aunt - cervical Family History: Bipolar - Social History Occupation: Employed Full-time Lives: With Family Alcohol Use: None Substance Use Type: Marijuana Smoking Status (MU): Current Every Day Smoker Type: Cigarettes Household Exposure Type: Cigars - Immunization History Most Recent Influenza Vaccination: never Most Recent Tetanus Shot: 11/06 Review of Systems Constitutional: Negative Skin: Other - ?FB left foot Respiratory: Negative Cardiovascular: Negative Neurovascular: Negative Musculoskeletal: Other: - Left index finger pain Neurological: Negative Psychological: Negative All Other Systems Reviewed And Are Negative: Yes Physical Exam - Summary Physical Exam Summary: GENERAL: NAD. WDWN. No pain distress. SKIN: LEFT FOOT: Plantar pad with 2mm area of ?plantar wart vs skin irritation. Severe TTP. No FB palpated. NECK: Supple. Nontender. CHEST: CTAB. No r/r/w. No accessory muscle use. Breathing comfortably and in no distress. CV: RRR. Without m/r/g. Pulses intact. Brisk cap refill. MSK: Left index finger: Mild TTP at distal phalanx. FROM. No edema, ecchymosis, or bony deformity. NEURO: Alert. CN II-XII grossly intact. PSYCH: Age appropriate behavior. Triage Information Reviewed: Yes Vital Signs: Vital Signs: Temp Pulse Resp BP Pulse Ox 98.7 F 58 18 117/90 97 08/12/18 12:42 08/12/18 12:42 08/12/18 12:42 08/12/18 12:42 08/12/18 12:42 Vital Signs Reviewed: Yes Lower Extremity Course/Dx - Course Course Of Treatment: XR finger: IMPRESSION: Nondisplaced fracture middle phalanx of the index finger. XR foot: Report: Negative for fracture or malalignment. 2 mm linear radiopaque density at the level. of the medial margin of the head of the second metatarsal grossly corresponds with the. region of clinical concern given the skin marker along the plantar aspect at the level of. the metatarsal phalangeal joints on the lateral view. Soft tissue swelling most prominent. at the plantar aspect of the forefoot. No compelling subcutaneous emphysema evident. The procedure was explained to the pt and all questions were answered. A time out was performed, witnessed, and signed. The area was cleansed with an alcohol pad. 1mL of 2% lidocaine without epi was administered and good anesthetization was achieved. A #15 blade was used to open the area of FB and the area was explored with splinter forceps. A hardened piece of callous was removed and pt experienced complete resolution of her foot pain. On investigating the callous, I did not appreciate any glass or FB. Pt continued to report complete resolution of her foot discomfort and did not wish to continue with the exploration for ?glass. The area was washed with NS and dressed with a band-aid. Pt tolerated well. In regards to her finger fracture, she was placed in a finger splint and advised to f/u with Orthopedics. - Differential Dx/Diagnosis Provider Diagnoses: Nondisplaced fracture distal phalanx of the left index finger. Left foot FB removal Discharge - Sign-Out/Discharge Documenting (check all that apply): Patient Departure All imaging exams completed and their final reports reviewed: Yes - Discharge Plan Condition: Stable Disposition: HOME Patient Education Materials: Finger Fracture (ED) Referrals: Daphne Brambila NP [Primary Care Provider] - Paulette Flowers MD [Medical Doctor] - As Soon As Possible Additional Instructions: If you develop a fever, shortness of breath, chest pain, new or worsening symptoms - please call your PCP or go to the ED. 1) Keep the wound on your foot clean, dry, and bandaged until well healed 2) Please schedule a follow up appointment with Orthopedics at the number below regarding your broken finger - Billing Disposition and Condition Condition: STABLE Disposition: Home
[2018-08-12 12:47] VITALS: BP 117/90
--- NOTE | 2018-08-12 13:13 | RAD ---
Indication: Fracture of the index finger on the left. 3 views of left index finger demonstrates a fracture through the midshaft of the distal phalanx of the index finger. No significant displacement is noted. IMPRESSION: Nondisplaced fracture middle phalanx of the index finger.
--- NOTE | 2018-08-12 13:21 | RAD ---
Indication: Possible foreign body at LEFT foot. Comparison: No relevant prior exams available on the [facility] PACS for comparison. Technique: AP and lateral views LEFT foot. Report: Negative for fracture or malalignment. 2 mm linear radiopaque density at the level of the medial margin of the head of the second metatarsal grossly corresponds with the region of clinical concern given the skin marker along the plantar aspect at the level of the metatarsal phalangeal joints on the lateral view. Soft tissue swelling most prominent at the plantar aspect of the forefoot. No compelling subcutaneous emphysema evident. IMPRESSION: #. Potential small radiopaque foreign body at the level of the medial margin of the head of the second metatarsal as described. There are no relevant prior exams available on the [facility] PACS to determine acuity of this finding.
[2018-08-12] MEDS ORDERED: Lidocaine 2% PF * 5 ML VIAL INJ ONE (13:23)
== END 2018-08-12 14:30 | disposition home or self-care (01) ==
LOC: UCEAST 12:18
DX: S62.651A Nondisplaced fracture of middle phalanx of left index finger, initial encounter for closed fracture (principal); S90.852A Superficial foreign body, left foot, initial encounter; X58.XXXA Exposure to other specified factors, initial encounter; Y92.9 Unspecified place or not applicable; Z88.6 Allergy status to analgesic agent; Z88.3 Allergy status to other anti-infective agents; Z91.041 Radiographic dye allergy status; F17.290 Nicotine dependence, other tobacco product, uncomplicated
CPT/HCPCS: 28190; 73140; 99212; G0463

== ENCOUNTER 2018-09-23 22:15 | Emergency (ER) | payer SELFPAY ==
[2018-09-24] MEDS ORDERED: Ondansetron ODT TAB* 4 MG PO ONE (00:13)
[2018-09-24] MEDS ORDERED: NS 0.9% 1000 ML* 1,000 ML IV ONE ×2 (00:13→01:11)
[2018-09-24] MEDS ORDERED: Morphine VIAL* 10 MG/ML 1 ML VIAL IV ONE (00:14)
[2018-09-24] MEDS ORDERED: Morphine VIAL* 4 MG/ML VIAL (1 ml vial) ONE (00:33)
[2018-09-24 00:42] LABS: Hematocrit 38 % (35-47); Hemoglobin 12.8 g/dl (12.0-16.0); Mean Corpuscular HGB Conc 34 g/dl (31-36); Mean Corpuscular Hemoglobin 31 pg (27-31); Mean Corpuscular Volume 91 fL (80-97); Mean Platelet Volume 8.1 fL (7.4-10.4); Platelet Count 241 10^3/ul (150-450); Red Blood Count 4.13 10^6/ul (4.00-5.40); Red Cell Distribution Width 14 % (10.5-15)
[2018-09-24 00:48] LABS: ABS Basophils 0 10^3/ul (0-0.2); ABS Eosinophils 0.2 10^3/ul (0-0.6); ABS Lymphocytes 2.4 10^3/ul (1.0-4.8); ABS Monocytes 0.7 10^3/ul (0-0.8); ABS Neutrophils 3.8 10^3/ul (1.5-7.7); ABS Nucleated RBC 0 10^3/ul; Eosinophil % 2.6 %; Lymphocyte % 33.4 %; Nucleated Red Blood Cells % 0
[2018-09-24 00:53] LABS: EGFR Non-African American 96.8 (>60)
--- NOTE | 2018-09-24 03:16 | ED ---
GI/ HPI - HPI Summary HPI Summary: Patient complains of vaginal bleeding 21 days and lower abdominal pain. Patient states using 10 pads in 10% tampons daily. Abdominal pain described as intermittent, neck contractions. Past history of same. States was evaluated by PRINT INSPECTOR who recommended hysterectomy. Patient unable to comply due to loss of insurance. Patient denies fever, cough, sore throat, CP, SOB, N/V/V change in urine, change in BM, vaginal discharge. Medical history is none. Abdominal surgical history is , BTL. - History of Current Complaint Chief Complaint: EDVaginalBleeding Time Seen by Provider: 09/23/18 23:28 Stated Complaint: ABNORMAL BLEEDING/OB ISSUE Hx Obtained From: Patient Hx Last Menstrual Period: 02/14/16 Onset/Duration: Started Weeks Ago Timing: Constant Severity: Moderate Current Severity: Moderate Vaginal Bleeding Description: Brownish-Red Pain Intensity: 9 Location of Pain: RLQ, LLQ, Suprapubic Pain Characteristics: Cramping Associated Signs and Symptoms: Positive: Lightheadedness - Allergy/Home Medications Allergies/Adverse Reactions: Allergies Allergy/AdvReac Type Severity Reaction Status Date / Time iodine Allergy Hives Verified 09/23/18 23:38 iohexol Allergy Hives Verified 09/23/18 23:38 naproxen Allergy Hives Verified 09/23/18 23:38 PMH/Surg Hx/FS Hx/Imm Hx Endocrine/Hematology History: Denies: Hx Anticoagulant Therapy, Hx Blood Disorders, Hx Diabetes, Hx Thyroid Disease Cardiovascular History: Reports: Hx Hypertension - ON MEDS Denies: Hx Deep Vein Thrombosis Respiratory History: Reports: Hx Asthma - inhaler prn Denies: Hx Chronic Obstructive Pulmonary Disease (COPD), Hx Pulmonary Embolism GI History: Denies: Hx Ulcer, Other GI Disorders History: Reports: Other Problems/Disorders - ovarian cysts Musculoskeletal History: Denies: Hx Scoliosis Sensory History: Reports: Hx Contacts or Glasses Denies: Hx Hearing Aid Opthamlomology History: Reports: Hx Contacts or Glasses Neurological History: Denies: Hx Headaches, Other Neuro Impairments/Disorders Psychiatric History: Reports: Hx Depression, Hx Post Traumatic Stress Disorder - tx w/ propranolol, Hx Inpatient Treatment - at age 20 in [place], Hx [facility] Tx - at age 20 in [place] Denies: Hx Eating Disorder, Hx of Violent Episodes Against Others - Surgical History Surgery Procedure, Year, and Place: 2006 - . 2011 Tubal Hx Anesthesia Reactions: No - Immunization History Date of Tetanus Vaccine: utd Date of Influenza Vaccine: none Infectious Disease History: Yes Infectious Disease History: Reports: Hx of Known/Suspected MRSA - wound leg, Hx Shingles Denies: Hx Clostridium Difficile, Hx Hepatitis, Hx Human Immunodeficiency Virus (HIV), Hx Tuberculosis, History Other Infectious Disease, Traveled Outside the [place] in Last 30 Days - Family History Known Family History: Positive: Cardiac Disease, Diabetes, Other - cancer - mom w/ cervical, GF - pro, sister - cervical, aunt - cervical Family History: Bipolar - Social History Alcohol Use: None Hx Substance Use: No Substance Use Type: Reports: Marijuana Substance Use Comment - Amount & Last Used: daily Hx Tobacco Use: Yes Smoking Status (MU): Current Some Day Smoker Type: Cigarettes Review of Systems Constitutional: Negative Eyes: Negative ENT: Negative Cardiovascular: Negative Respiratory: Negative Positive: Abdominal Pain Genitourinary: Negative Musculoskeletal: Negative Skin: Negative Neurological: Negative Psychological: Normal All Other Systems Reviewed And Are Negative: Yes Physical Exam - Summary Physical Exam Summary: Abdomen mildly tender diffusely. Triage Information Reviewed: Yes Vital Signs On Initial Exam: Initial Vitals Temp Pulse Resp BP Pulse Ox 98.5 F 62 18 118/91 98 09/23/18 22:18 09/23/18 22:18 09/23/18 22:18 09/23/18 22:18 09/23/18 22:18 Vital Signs Reviewed: Yes Appearance: Positive: Well-Appearing Skin: Positive: Warm Head/Face: Positive: Normal Head/Face Inspection Eyes: Positive: Normal Neck: Positive: Supple Respiratory/Lung Sounds: Positive: Clear to Auscultation Cardiovascular: Positive: Normal Abdomen Description: Positive: Other: Musculoskeletal: Positive: Normal Neurological: Positive: Normal Psychiatric: Positive: Normal AVPU Assessment: Alert - [place] Coma Scale Best Eye Response: 4 - Spontaneous Best Motor Response: 6 - Obeys Commands Best Verbal Response: 5 - Oriented Coma Scale Total: 15 Diagnostics - Vital Signs Vital Signs Temp Pulse Resp BP Pulse Ox 09/24/18 02:32 52 105/72 96 09/24/18 02:02 51 112/56 98 09/24/18 02:00 49 98 09/24/18 01:32 54 130/88 97 09/24/18 01:03 48 112/94 98 09/24/18 01:00 52 94 09/24/18 00:41 59 128/79 96 09/24/18 00:36 18 09/24/18 00:31 61 133/59 98 09/24/18 00:02 54 108/65 99 09/24/18 00:00 65 97 09/23/18 23:33 60 98 09/23/18 23:31 57 131/77 98 09/23/18 22:18 98.5 F 62 18 118/91 98 - Laboratory Lab Results: Lab Results 09/24/18 09/24/18 Range/Units 00:25 00:25 WBC 7.0 (3.5-10.8) 10^3/ul RBC 4.13 (4.00-5.40) 10^6/ul Hgb 12.8 (12.0-16.0) g/dl Hct 38 (35-47) % MCV 91 (80-97) fL MCH 31 (27-31) pg MCHC 34 (31-36) g/dl RDW 14 (10.5-15) % Plt Count 241 (150-450) 10^3/ul MPV 8.1 (7.4-10.4) fL Neut % (Auto) 53.6 % Lymph % (Auto) 33.4 % [place] % (Auto) 9.9 % Eos % (Auto) 2.6 % Baso % (Auto) 0.5 % Absolute Neuts (auto) 3.8 (1.5-7.7) 10^3/ul Absolute Lymphs (auto) 2.4 (1.0-4.8) 10^3/ul Absolute Monos (auto) 0.7 (0-0.8) 10^3/ul Absolute Eos (auto) 0.2 (0-0.6) 10^3/ul Absolute Basos (auto) 0 (0-0.2) 10^3/ul Absolute Nucleated RBC 0 10^3/ul Nucleated RBC % 0 Sodium 138 (135-145) mmol/L Potassium 3.6 (3.5-5.0) mmol/L Chloride 109 (101-111) mmol/L Carbon Dioxide 23 (22-32) mmol/L Anion Gap 6 (2-11) mmol/L BUN 12 (6-24) mg/dL Creatinine 0.69 (0.51-0.95) mg/dL Est GFR ( Amer) 117.2 (>60) Est GFR (Non-Af Amer) 96.8 (>60) BUN/Creatinine Ratio 17.4 (8-20) Glucose 117 H (70-100) mg/dL Calcium 9.1 (8.6-10.3) mg/dL Total Bilirubin 0.20 (0.2-1.0) mg/dL AST 14 (13-39) U/L ALT 14 (7-52) U/L Alkaline Phosphatase 43 (34-104) U/L C-Reactive Protein 2.54 (<8.01) mg/L Total Protein 6.2 L (6.4-8.9) g/dL Albumin 3.9 (3.2-5.2) g/dL Globulin 2.3 (2-4) g/dL Albumin/Globulin Ratio 1.7 (1-3) Beta HCG, Quant < 0.60 mIU/mL Result Diagrams: 09/24/18 00:25 09/24/18 00:25 Lab Statement: Any lab studies that have been ordered have been reviewed, and results considered in the medical decision making process. GIGU Course/Dx - Course Course Of Treatment: Patient complains of vaginal bleeding 21 days and lower abdominal pain. Patient states using 10 pads in 10% tampons daily. Abdominal pain described as intermittent, neck contractions. Past history of same. States was evaluated by PRINT INSPECTOR who recommended hysterectomy. Patient unable to comply due to loss of insurance. Patient denies fever, cough, sore throat, CP, SOB, N/V/V change in urine, change in BM, vaginal discharge. Medical history is none. Abdominal surgical history is , BTL. Physical exam:Abdomen mildly tender diffusely. Patient mildly bradycardic. Vital signs otherwise within normal limits. Labs unremarkable. Patient advised to follow up with OB/ [facility]. - Diagnoses Provider Diagnoses: Dysfunctional uterine bleeding Discharge - Sign-Out/Discharge Documenting (check all that apply): Patient Departure - Discharge Plan Condition: Stable Disposition: HOME Patient Education Materials: Dysfunctional Uterine Bleeding (ED) Referrals: Daphne Brambila NP [Primary Care Provider] - Ruba Patel MD [Medical Doctor] - Additional Instructions: Follow up with PRINT INSPECTOR for further evaluation. Return to the ED for any new or worsening symptoms - Billing Disposition and Condition Condition: STABLE Disposition: Home
[2018-09-24 03:44] VITALS: BP 94/63
== END 2018-09-24 03:45 | disposition home or self-care (01) ==
LOC: ED 22:15
DX: N93.8 Other specified abnormal uterine and vaginal bleeding (principal); R10.30 Lower abdominal pain, unspecified; I10 Essential (primary) hypertension; Z72.0 Tobacco use; R42 Dizziness and giddiness
CPT/HCPCS: 36415; 80053; 84702; 85025; 86140; 96361; 96374; 99283; A9270-GY; J2270

== ENCOUNTER 2019-02-16 11:25 | Emergency (ER) | payer SELFPAY ==
[2019-02-16 11:54] LABS: ABS Basophils 0 10^3/ul (0-0.2); ABS Eosinophils 0.1 10^3/ul (0-0.6); ABS Lymphocytes 1.5 10^3/ul (1.0-4.8); ABS Monocytes 0.5 10^3/ul (0-0.8); ABS Neutrophils 2.6 10^3/ul (1.5-7.7); ABS Nucleated RBC 0 10^3/ul; Eosinophil % 3.1 %; Hematocrit 42 % (33-41); Hemoglobin 13.9 g/dL (12.0-16.0); Lymphocyte % 31.2 %; Mean Corpuscular HGB Conc 33 g/dL (31-36); Mean Corpuscular Hemoglobin 30 pg (27-31); Mean Corpuscular Volume 90 fL (80-97); Mean Platelet Volume 7.9 fL (7.4-10.4); Nucleated Red Blood Cells % 0; Platelet Count 236 10^3/uL (150-450); Red Blood Count 4.63 10^6 /uL (3.70-4.87); Red Cell Distribution Width 14 % (10.5-15); White Blood Count 4.8 10^3/uL (3.5-10.8)
--- NOTE | 2019-02-16 12:53 | ED ---
GI/ HPI - HPI Summary HPI Summary: This patient is a 38 year old F presenting to [facility] with a chief complaint of intermittent, severe vaginal bleeding since 01/23/19. The patient rates the pain 10/10 in severity. Symptoms not alleviated by Motrin. Patient reports edema and pain near her cervix, abd pain, cramping, chills, vomiting, decreased appetite, increased urinary frequency, hematuria, and right arm numbness. Patient denies dysuria, CP, or SOB. She states that on 02/09 she passed a white, stringy discharge with a foul odor. This has not happened to her before. She cannot have sexual intercourse without pain, but her last time was about a month ago. She does not see her OBGYN regularly. The patient takes some of her friends painkillers. The last episode of emesis was two days ago. She says she has lost ten pounds in the past month. She states that she has numbness in her right arm that began two weeks ago. P:5. She has had one . PMHX Endometriosis, MERSA, trichomoniasis. No PMHx chlamydia or gonorrhea, gallbladder removal, appendix removal. SHX 2 tobacco cigars a day. No SHx EtOH use. FHX Irregular periods. RX none. - History of Current Complaint Chief Complaint: EDOBProblems Time Seen by Provider: 02/16/19 12:20 Stated Complaint: HEAVY VAGINAL BLEEDING PER PT Hx Obtained From: Patient Hx Last Menstrual Period: 02/14/16 Onset/Duration: Started Weeks Ago Timing: Intermittent Current Severity: Severe - 10/10 Pain Intensity: 10 Associated Signs and Symptoms: Positive: Vomiting, Weight Loss, Discharge, Hematuria, Chills, Abdominal Pain. Negative: Dysuria - Allergy/Home Medications Allergies/Adverse Reactions: Allergies Allergy/AdvReac Type Severity Reaction Status Date / Time iodine Allergy Hives Verified 02/16/19 11:38 iohexol Allergy Hives Verified 02/16/19 11:38 naproxen Allergy Hives Verified 02/16/19 11:38 PMH/Surg Hx/FS Hx/Imm Hx Endocrine/Hematology History: Denies: Hx Anticoagulant Therapy, Hx Blood Disorders, Hx Diabetes, Hx Thyroid Disease Cardiovascular History: Reports: Hx Hypertension - ON MEDS Denies: Hx Deep Vein Thrombosis Respiratory History: Reports: Hx Asthma - inhaler prn Denies: Hx Chronic Obstructive Pulmonary Disease (COPD), Hx Pulmonary Embolism GI History: Denies: Hx Ulcer, Other GI Disorders History: Reports: Other Problems/Disorders - ovarian cysts Musculoskeletal History: Denies: Hx Scoliosis Sensory History: Reports: Hx Contacts or Glasses Denies: Hx Hearing Aid Opthamlomology History: Reports: Hx Contacts or Glasses Neurological History: Denies: Hx Headaches, Other Neuro Impairments/Disorders Psychiatric History: Reports: Hx Depression, Hx Post Traumatic Stress Disorder - tx w/ propranolol, Hx Inpatient Treatment - at age 20 in [place], Hx [facility]x - at age 20 in [place] Denies: Hx Eating Disorder, Hx of Violent Episodes Against Others - Surgical History Surgery Procedure, Year, and Place: 2006 - . 2011 Tubal Hx Anesthesia Reactions: No - Immunization History Date of Tetanus Vaccine: utd Date of Influenza Vaccine: none Infectious Disease History: No Infectious Disease History: Reports: Hx of Known/Suspected MRSA - wound leg, Hx Shingles Denies: Hx Clostridium Difficile, Hx Hepatitis, Hx Human Immunodeficiency Virus (HIV), Hx Tuberculosis, History Other Infectious Disease, Traveled Outside the [place] in Last 30 Days - Family History Known Family History: Positive: Cardiac Disease, Diabetes, Other - cancer - mom w/ cervical, GF - pro, sister - cervical, aunt - cervical Family History: Bipolar - Social History Alcohol Use: None Hx Substance Use: Yes Substance Use Type: Reports: Marijuana Substance Use Comment - Amount & Last Used: daily Hx Tobacco Use: Yes Smoking Status (MU): Current Every Day Smoker Type: Cigars Review of Systems Negative: Chest Pain Negative: Shortness Of Breath Positive: Vomiting, Other - decreased appetite Genitourinary: Other - vaginal bleeding Positive: discharge, frequency, hematuria. Negative: dysuria Positive: Edema - cervix Positive: Numbness - right arm All Other Systems Reviewed And Are Negative: Yes Physical Exam - Summary Physical Exam Summary: Appearance: well appearing, no pain distress Skin: warm, dry, reflects adequate perfusion Head/face: normal Eyes: EOMI, SHIELA ENT: mucous membranes moist Neck: supple, non-tender Respiratory: CTA, breath sounds present Cardiovascular: RRR, pulses symmetrical Abdomen: diffuse lower abd pain, no rebound or guarding Bowel Sounds: present Musculoskeletal: normal, strength/ROM intact Neuro: normal, sensory motor intact, A&Ox3 Groin: minimal dark blood in the vaginal vault Triage Information Reviewed: Yes Vital Signs On Initial Exam: Initial Vitals Temp Pulse Resp BP Pulse Ox 98.3 F 69 16 111/62 98 02/16/19 11:38 02/16/19 11:38 02/16/19 11:38 02/16/19 11:38 02/16/19 11:38 Vital Signs Reviewed: Yes Diagnostics - Vital Signs Vital Signs Temp Pulse Resp BP Pulse Ox 02/16/19 11:38 98.3 F 69 16 111/62 98 - Laboratory Lab Results: Lab Results 02/16/19 02/16/19 Range/Units 11:47 11:47 WBC 4.8 (3.5-10.8) 10^3/uL RBC 4.63 (3.70-4.87) 10^6 /uL Hgb 13.9 (12.0-16.0) g/dL Hct 42 H (33-41) % MCV 90 (80-97) fL MCH 30 (27-31) pg MCHC 33 (31-36) g/dL RDW 14 (10.5-15) % Plt Count 236 (150-450) 10^3/uL MPV 7.9 (7.4-10.4) fL Neut % (Auto) 54.5 % Lymph % (Auto) 31.2 % [place] % (Auto) 10.6 % Eos % (Auto) 3.1 % Baso % (Auto) 0.6 % Absolute Neuts (auto) 2.6 (1.5-7.7) 10^3/ul Absolute Lymphs (auto) 1.5 (1.0-4.8) 10^3/ul Absolute Monos (auto) 0.5 (0-0.8) 10^3/ul Absolute Eos (auto) 0.1 (0-0.6) 10^3/ul Absolute Basos (auto) 0 (0-0.2) 10^3/ul Absolute Nucleated RBC 0 10^3/ul Nucleated RBC % 0 Beta HCG, Quant < 0.60 mIU/mL Result Diagrams: 02/16/19 11:47 Lab Statement: Any lab studies that have been ordered have been reviewed, and results considered in the medical decision making process. - Ultrasound No standard instances Ultrasound Interpretation Completed By: Radiologist Summary of Ultrasound Findings: 1. PROMINENCE OF THE PELVIC VASCULATURE. WHILE NONSPECIFIC, THIS CAN BE ASSOCIATED WITH. PELVIC CONGESTION SYNDROME IN THE CORRECT CLINICAL SETTING. 2. OTHERWISE UNREMARKABLE ULTRASOUND OF THE PELVIS. THE ENDOMETRIAL STRIPE MEASURES 0.5. CM. ED physician has reviewed this report. GIGU Course/Dx - Course Course Of Treatment: Patient presents with long-standing dysfunctional uterine bleeding. She is not on any control and has not seen gynecology. Endometrium is 5.3 mm on ultrasound. Her hemoglobin is normal. She was started on NSAID here and will continue on Ponstel and a continuous estrogen/ progesterone oral contraceptive pill. She will follow-up with gynecology who she has seen in the remote past. - Diagnoses Differential Diagnoses - Female: Other - Incomplete , endometriosis, dysfunctional bleeding, uterine fibroids Provider Diagnoses: Dysfunctional uterine bleeding Discharge - Sign-Out/Discharge Documenting (check all that apply): Patient Departure - discharge Patient Received Moderate/Deep Sedation with Procedure: No - Discharge Plan Condition: Improved Disposition: HOME Prescriptions: l-Norgest/E.estradiol-E.estrad [Seasonique 0.15-0.03-0.01 Tab] 1 each PO DAILY # 1 tbdspk.3mo Mefenamic Acid 250 mg PO TID #10 cap Patient Education Materials: Dysfunctional Uterine Bleeding (ED) Referrals: Daphne Brambila NP [Primary Care Provider] - Ruba Patel MD [Medical Doctor] - Additional Instructions: Call tomorrow to schedule appointment with STUDY MANAGER. Drink plenty of fluids. Taking iron-containing vitamin daily. Return if worse, new symptoms or other concerns. - Billing Disposition and Condition Condition: IMPROVED Disposition: Home - Attestation Statements Document Initiated by Ashwini: Yes Documenting Scribe: Quentin Morton Provider For Whom Ashwini is Documenting (Include Credential): Corey Huizar MD Scribe Attestation: Quentin Aguayo, sierraibed for Corey Huizar MD on 02/16/19 at 1826. Scribe Documentation Reviewed: Yes Provider Attestation: The documentation as recorded by the Quentin woods accurately reflects the service I personally performed and the decisions made by me, Corey Huizar MD Status of Scribe Document: Viewed
[2019-02-16] MEDS ORDERED: Ibuprofen TAB* 600 MG PO ONE (13:34)
[2019-02-16 13:58] VITALS: BP 124/86
== END 2019-02-16 13:55 | disposition home or self-care (01) ==
LOC: ED 11:25
DX: N93.8 Other specified abnormal uterine and vaginal bleeding (principal); F17.290 Nicotine dependence, other tobacco product, uncomplicated; I10 Essential (primary) hypertension; J45.909 Unspecified asthma, uncomplicated; F43.10 Post-traumatic stress disorder, unspecified; F32.9 Major depressive disorder, single episode, unspecified
CPT/HCPCS: 36415; 76830; 84702; 85025; 99282; A9270-GY

== ENCOUNTER 2019-11-11 12:54 | Emergency (ER) | payer MEDICAID, OTHER ==
--- NOTE | 2019-11-11 13:02 | ED ---
GI/ HPI - HPI Summary HPI Summary: Patient is a 38-year-old female who presents emergency department for vaginal bleeding 2 days. Patient has a history of menorrhagia and has been seen in the ER numerous times for heavy vaginal bleeding. Patient states she has seen a mailroom assistant in the past and has been tried on oral contraceptives but did not improve her symptoms. Patient states that gynecology recommended D&C but patient states she lost her insurance and was unable to have procedure. Patient states she had bleeding 2 weeks ago and bleeding returned yesterday. Patient changing pad every hour. No associated symptoms of syncope chest pain or shortness of breath. Patient notes lower abdominal pain. No past medical history. Symptoms are [id number] in severity. No current modifying factors. - History of Current Complaint Chief Complaint: EDVaginalBleeding Time Seen by Provider: 11/11/19 12:59 Stated Complaint: VAGINAL BLEEDING PER EMS Hx Last Menstrual Period: 02/14/16 Pain Intensity: 8 - Allergy/Home Medications Allergies/Adverse Reactions: Allergies Allergy/AdvReac Type Severity Reaction Status Date / Time iodine Allergy Hives Verified 11/11/19 13:00 iohexol Allergy Hives Verified 11/11/19 13:00 naproxen Allergy Hives Verified 11/11/19 13:00 Home Medications: Home Medications NK [No Home Medications Reported] 11/11/19 [History Confirmed 11/11/19] PMH/Surg Hx/FS Hx/Imm Hx Previously Healthy: Yes Endocrine/Hematology History: Denies: Hx Anticoagulant Therapy, Hx Blood Disorders, Hx Diabetes, Hx Thyroid Disease Cardiovascular History: Reports: Hx Hypertension - ON MEDS Denies: Hx Deep Vein Thrombosis Respiratory History: Reports: Hx Asthma - inhaler prn Denies: Hx Chronic Obstructive Pulmonary Disease (COPD), Hx Pulmonary Embolism GI History: Denies: Hx Ulcer, Other GI Disorders History: Reports: Other Problems/Disorders - ovarian cysts Musculoskeletal History: Denies: Hx Scoliosis Sensory History: Reports: Hx Contacts or Glasses Denies: Hx Hearing Aid Opthamlomology History: Reports: Hx Contacts or Glasses Neurological History: Denies: Hx Headaches, Other Neuro Impairments/Disorders Psychiatric History: Reports: Hx Depression, Hx Post Traumatic Stress Disorder - tx w/ propranolol, Hx Inpatient Treatment - at age 20 in [place], Hx Community Mental Health Tx - at age 20 in [place] Denies: Hx Eating Disorder, Hx of Violent Episodes Against Others - Surgical History Surgery Procedure, Year, and Place: 2006 - . 2011 Tubal Hx Anesthesia Reactions: No - Immunization History Date of Tetanus Vaccine: utd Date of Influenza Vaccine: none Infectious Disease History: No Infectious Disease History: Reports: Hx of Known/Suspected MRSA - wound leg, Hx Shingles Denies: Hx Clostridium Difficile, Hx Hepatitis, Hx Human Immunodeficiency Virus (HIV), Hx Tuberculosis, History Other Infectious Disease, Traveled Outside the [place] in Last 30 Days - Family History Known Family History: Positive: Cardiac Disease, Diabetes, Other - cancer - mom w/ cervical, GF - pro, sister - cervical, aunt - cervical Family History: Bipolar - Social History Occupation: Employed Full-time Lives: With Family Alcohol Use: None Hx Substance Use: Yes Substance Use Type: Reports: Marijuana Substance Use Comment - Amount & Last Used: daily Hx Tobacco Use: Yes Smoking Status (MU): Current Every Day Smoker Type: Cigars Review of Systems Cardiovascular: Negative Respiratory: Negative Positive: Abdominal Pain Positive: other - vaginal bleeding Neurological: Negative All Other Systems Reviewed And Are Negative: Yes Physical Exam Triage Information Reviewed: Yes Vital Signs On Initial Exam: Initial Vitals Temp Pulse Resp BP Pulse Ox 98.8 F 65 16 147/101 98 11/11/19 12:55 11/11/19 12:55 11/11/19 12:55 11/11/19 12:55 11/11/19 12:55 Vital Signs Reviewed: Yes Appearance: Positive: Pain Distress - Patient sitting up in bed, appears uncomfortable but nontoxic. Skin: Positive: Warm, Dry Head/Face: Positive: Normal Head/Face Inspection Eyes: Positive: Normal, EOMI Neck: Positive: Supple Respiratory/Lung Sounds: Positive: Clear to Auscultation, Breath Sounds Present Cardiovascular: Positive: Normal, RRR Abdomen Description: Positive: Other: - Abdomen is soft with mild diffuse tenderness on palpation. No rebound tenderness or guarding. Pelvic Exam: Positive: Other - Exam performed with patient's nurse in room, [facility]. External genitalia unremarkable. Speculum exam revealed a mild amount of bleeding from the cervix. Neurological: Positive: Normal, CN Intact II-III Psychiatric: Positive: Affect/Mood Appropriate Procedures - Sedation Patient Received Moderate/Deep Sedation with Procedure: No Diagnostics - Vital Signs Vital Signs Temp Pulse Resp BP Pulse Ox 11/11/19 12:55 98.8 F 65 16 147/101 98 - Laboratory Result Diagrams: 11/11/19 13:07 Lab Statement: Any lab studies that have been ordered have been reviewed, and results considered in the medical decision making process. GIGU Course/Dx - Course Course Of Treatment: Patient presenting with complaints of heavy vaginal bleeding. Vital signs are stable. She has mild bleeding on exam. Stable H&H of 14 and 42. Negative . Patient is given a dose of IM Toradol with improvement of her pain. Strongly advised patient she is to follow-up closely with [facility] for definitive care. She is to call their office today for an appointment. Advised to continue ibuprofen 600 mg every 6 hours. Return to the ER symptoms change or worsen. Patient understands and agrees with plan. - Diagnoses Differential Diagnoses - Female: , Other - menorrhagia, AUB, anemia Provider Diagnoses: Menorrhagia Discharge ED - Sign-Out/Discharge Documenting (check all that apply): Patient Departure - Discharge Plan Condition: Good Disposition: HOME Patient Education Materials: Menorrhagia (ED) Referrals: Daphne Brambila NP [Primary Care Provider] - Everett Adame JR, DO [Doctor of Osteopathy] - Additional Instructions: Please call the [facility] office today to schedule an appointment for further care of heavy bleeding Take ibuprofen 600mg every 6 hours for pain as directed Return to ER if symptoms change or worsen - Billing Disposition and Condition Condition: GOOD Disposition: Home - Attestation Statements Provider Attestation: I was available for consultation for this patient. I did not evaluate the patient or participate in any medical decision making or disposition decisions unless I am specifically named in the chart as having consulted on the patient. If I have consulted on the patient, please see my own ED note on the patient encounter. Jon Bahena MD
[2019-11-11 13:15] LABS: ABS Eosinophils 0.2 10^3/ul (0-0.6); ABS Lymphocytes 1.5 10^3/ul (1.0-4.8); ABS Monocytes 0.7 10^3/ul (0-0.8); Eosinophil % 3.7 %; Hematocrit 42 % (35-47); Lymphocyte % 33.7 %; Mean Corpuscular HGB Conc 34 g/dL (31-36); Mean Corpuscular Hemoglobin 31 pg (27-31); Mean Corpuscular Volume 92 fL (80-97); Mean Platelet Volume 7.5 fL (7.4-10.4); Platelet Count 229 10^3/uL (150-450); Red Blood Count 4.53 10^6 /uL (3.70-4.87); Red Cell Distribution Width 14 % (10-15); White Blood Count 4.4 10^3/uL (3.5-10.8)
--- OUTSIDE RECORDS SUMMARY | 2019-11-11 13:40 | XMS REPORT ---
:1980 Author Organization [facility] Care Team Providers Name Role Phone Delores Fraga Primary Care Physician Unavailable Allergies, Adverse Reactions, Alerts Allergy Code CodeSystem Reaction Severity Criticality Status Start Substance Date Moderate Medications Medication Medication Medication Start Stop Route Dose Status Fill Code CodeSystem Date Date Instructions RxNorm Problems Problem Name Code CodeSystem Alternate Alternate Start End Status Narrative Code CodeSystem Date Date Adjustment 87683268 SNOMED-CT Active disorder - with anxiety Adjustment 97595395 SNOMED-CT Active disorder 01-10 with anxiety Relevant diagnostic tests/laboratory data Narrative No Information Procedures Procedure Code CodeSystem Target Date of Status Service Device Device Device Name Site Procedure Delivery Code Name UID Location SNOMED-CT () 2019-09-[address], [id number] Encounters/Encounter Diagnoses Encounter Encounter Diagnosis Diagnosis Diagnosis Date of Service Name Code Code Name CodeSystem Diagnosis Delivery Location Non-Billable [id number] Adjustment SNOMED-CT 2019-09-17 [facility] with [facility] , , , Vital Signs No Information Social History Element Description Description Start End Code CodeSystem AdditionalInfo Date Date SexAssignedAtBirth Female F AdministrativeGender 11-24 Hospital Discharge Instructions Reason For Referral Medical Equipment FDA Assessments
[2019-11-11] MEDS ORDERED: Ketorolac INJ* 30 MG/ML 1 ML VIAL IM ONE (13:45)
[2019-11-11 14:37] VITALS: BP 117/70
== END 2019-11-11 14:38 | disposition home or self-care (01) ==
LOC: ED 12:54
DX: N92.0 Excessive and frequent menstruation with regular cycle (principal); I10 Essential (primary) hypertension; J45.909 Unspecified asthma, uncomplicated; F32.9 Major depressive disorder, single episode, unspecified; F43.10 Post-traumatic stress disorder, unspecified; F17.290 Nicotine dependence, other tobacco product, uncomplicated; Z98.51 Tubal ligation status; Z79.899 Other long term (current) drug therapy; Z88.8 Allergy status to other drugs, medicaments and biological substances; Z91.041 Radiographic dye allergy status
CPT/HCPCS: 36415; 83880; 84702; 85025; 96372; 99281; J1885

== ENCOUNTER 2020-01-25 12:46 | Emergency (ER) | payer OTHER ==
[2020-01-25 14:19] VITALS: BP 107/60
--- NOTE | 2020-01-25 14:19 | UC ---
Throat Pain/Nasal Musa HPI - HPI Summary HPI Summary: 39-year-old woman coming in with chief complaint of 3 days of chills body aches and fatigue and rhinorrhea. No known contact with Covid. Her partner is also ill with similar symptoms. Reports a chronic smoker's cough. Does have a sore throat. Has been having some left ear pain. Has been frontal headache. Denies any shortness of breath. patient's been having left lower quadrant cramping abdominal pain. She reports she has a history of endometriosis. She had a tubal ligation years ago. Her menstrual periods are irregular. Her last menstrual period was in November. Denies any abnormal vaginal discharge or concern of STI. No burning with urination. Last night her left lower quadrant pain was severe. It is not as bad now. She reports that her breasts of and tender which reminds her of when she's been in the past since that she is concerned about the possibility of . She's taken a home urine test that was negative however she is interested in a serum test further evaluate the possibility of . - History of Current Complaint Chief Complaint: UCRespiratory Stated Complaint: CONGESTED Time Seen by Provider: 01/25/20 13:13 Hx Last Menstrual Period: november 2019 Pain Intensity: 0 - Allergies/Home Medications Allergies/Adverse Reactions: Allergies Allergy/AdvReac Type Severity Reaction Status Date / Time iodine Allergy Hives Verified 01/25/20 12:52 iohexol Allergy Hives Verified 01/25/20 12:52 naproxen Allergy Hives Verified 01/25/20 12:52 Home Medications: Home Medications Amoxicillin PO (*) [Amoxicillin 875 MG (*)] 875 mg PO BID #20 tab 01/25/20 [Rx] Ibuprofen TAB* [Motrin TAB* 800 MG] 800 mg PO Q8H PRN 01/25/20 [History Confirmed 01/25/20] PMH/Surg Hx/FS Hx/Imm Hx Previously Healthy: Yes - endometriosis Other History Of: Negative For: Anticoagulant Therapy - Surgical History Surgical History: Yes Surgery Procedure, Year, and Place: 2006 - . 2010 Tubal - Family History Known Family History: Positive: Cardiac Disease, Diabetes, Other - cancer - mom w/ cervical, GF - pro, sister - cervical, aunt - cervical Family History: Bipolar - Social History Alcohol Use: None Substance Use Type: Marijuana Substance Use Comment - Amount & Last Used: daily Smoking Status (MU): Current Some Day Smoker Type: Cigars Household Exposure Type: Cigars - Immunization History Most Recent Influenza Vaccination: never Most Recent Tetanus Shot: 11/06 Review of Systems All Other Systems Reviewed And Are Negative: Yes Constitutional: Positive: Chills, Fatigue, Other - SEE HPI Skin: Positive: Negative Eyes: Positive: Negative ENT: Positive: Sore Throat, Ear Ache, Nasal Discharge, Sinus Congestion Respiratory: Positive: Cough Cardiovascular: Positive: Negative Gastrointestinal: Positive: Abdominal Pain Genitourinary: Positive: Negative Motor: Positive: Negative Neurovascular: Positive: Negative Musculoskeletal: Positive: Myalgia Neurological/Mental Status: Positive: Headache Psychological: Positive: Negative Is Patient Immunocompromised?: No Physical Exam Triage Information Reviewed: Yes Appearance: No Pain Distress, Well-Nourished, Ill-Appearing - MILD Vital Signs Reviewed: Yes Eye Exam: Normal Eyes: Positive: Conjunctiva Clear ENT: Positive: Pharyngeal erythema, Nasal congestion, Nasal drainage, Other - Both TMs have scarring I do not appreciate any acute otitis media. Neck: Positive: Supple Respiratory: Positive: Lungs clear, Normal breath sounds, No respiratory distress Cardiovascular: Positive: RRR Abdomen Description: Positive: Other: - Mild tenderness to palpation left lower quadrant the abdomen the rest the abdomen is nontender to palpation. Bowel Sounds: Positive: Present Musculoskeletal: Positive: Strength Intact, ROM Intact Neurological: Positive: Alert, Muscle Tone Normal Psychological: Positive: Age Appropriate Behavior Skin Exam: Normal Throat Pain/Nasal Course/Dx - Course Course Of Treatment: Strep and influenza were negative. Urinalysis did not show any signs of infection. Urine test was negative. Here in clinic patients afebrile. Abdomen is mildly tender in left lower quadrant is not tender in the right lower quadrant. Patient reports this is recurrent pain associated with endometriosis. Patient initially was interested in getting a blood test. However after discussing the urine test results patient decided she felt comfortable with those results and didn't not want a blood test anymore. For the sinusitis we discussed viral versus bacterial infections and the patient prefers to be on antibiotic at this time. She will also continue symptomatically treatment of the sinus symptoms. For the abdominal pain she'll follow-up with her primary care doctor or if not improving or worse go to the emergency department. Covid results are pending. Patient will be an self-isolation. Follow[facility] with [facility]. Patient will get reevaluated if symptoms are worsening. - Differential Dx/Diagnosis Provider Diagnosis: Sinusitis, Abdominal pain, left lower quadrant Discharge ED - Sign-Out/Discharge Documenting (check all that apply): Patient Departure All imaging exams completed and their final reports reviewed: No Studies - Discharge Plan Condition: Stable Disposition: HOME Prescriptions: Amoxicillin PO (*) [Amoxicillin 875 MG (*)] 875 mg PO BID #20 tab Patient Education Materials: Sinusitis (ED), Acute Abdominal Pain (ED) Referrals: Daphne Brambila NP [Primary Care Provider] - Additional Instructions: PLACE YOURSELF IN HOME ISOLATION. THE [facility] WILL CONTACT YOU. CONTACT THEM TOMORROW IF YOU HAVE NOT HEARD FROM THEM. FOLLOW UP WITH YOUR DOCTOR IF NOT COMPLETELY IMPROVED. GO TO THE EMERGENCY DEPARTMENT IF NOT IMPROVED OR WORSE OR ANY QUESTIONS OR CONCERNS. - Billing Disposition and Condition Condition: STABLE Disposition: Home
[2020-01-25 14:26] LABS: Influenza A Molecular Negative (Negative); Influenza B Molecular Negative (Negative)
== END 2020-01-25 14:43 | disposition home or self-care (01) ==
LOC: UCEAST 12:46
DX: J32.9 Chronic sinusitis, unspecified (principal); R10.32 Left lower quadrant pain; Z32.02 Encounter for pregnancy test, result negative; R05 Cough; J02.9 Acute pharyngitis, unspecified; H92.02 Otalgia, left ear; Z20.828 Contact with and (suspected) exposure to other viral communicable diseases; Z88.6 Allergy status to analgesic agent; Z88.3 Allergy status to other anti-infective agents; Z91.041 Radiographic dye allergy status; Z72.0 Tobacco use
CPT/HCPCS: 81003; 84702; 87635; 87651; 99212; G0463